=== PATIENT | female | born 1985 | race Caucasian/White ===

== ENCOUNTER 2022-06-06 08:49 | Outpatient (CLI) | payer OTHER, SELFPAY ==
--- NOTE | 2022-06-06 09:15 | US_ITS ---
Patient: DEMOND BRENNAN Facility:?[facility] Patient ID:?[id number] Site Patient ID:?[id number]. Site :?[id number] Study:?US-Pelvis TA/TV-06/06/2022 10:27:26 AM Ordering Physician:?UNKNOWN UNKNOWN Final Report: INDICATION: 36 year-old female. Pelvic cramping. The last menstrual period was 3 weeks ago. TECHNIQUE: Transabdominal and transvaginal pelvic ultrasound. Grayscale and color spectral Doppler waveform analysis of the ovaries was performed. FINDINGS: The uterus measures 6.7 x 2.5 x 3.4 cm. Normal endometrial stripe of 4 mm. Within the upper anterior right uterine fundus there is an intramural/subserosal fibroid measuring 1.3 x 0.7 x 1.0 cm. The right ovary measures 2.9 x 1.5 x 1.4 cm. The left ovary measures 3.5 x 1.6 x 1.8 cm. Blood flow is documented in the ovaries both arterial and venous. No torsion. No ovarian or adnexal mass. No free pelvic fluid. IMPRESSION: Small subserosal fibroid right anterior fundus measuring up to 1.3 cm. Normal ovaries. No torsion or mass. Dictated by Joseph Yuan MD @ 06/06/2022 10:35:10 AM Signed by:?Joseph Yuan MD @06/06/2022 10:35:10 AM (Electronic Signature)
== END 2022-06-06 08:50 | disposition home or self-care (01) ==
PROVIDERS: PCP Emergency Medicine; Visit Provider Physician Assistant
DX: R10.2 Pelvic and perineal pain (principal); D25.2 Subserosal leiomyoma of uterus
CPT/HCPCS: 76830; 76856; 93976

== ENCOUNTER 2022-11-22 08:28 | Outpatient (CLI) | payer OTHER, SELFPAY | END 2022-11-22 08:29 | disposition home or self-care (01) | PROVIDERS: PCP Emergency Medicine; Referring Provider Emergency Medicine; Visit Provider Emergency Medicine | DX: N64.4 Mastodynia (principal); Z13.1 Encounter for screening for diabetes mellitus; Z13.6 Encounter for screening for cardiovascular disorders | CPT/HCPCS: 80061 ==

== ENCOUNTER 2022-11-29 09:12 | Outpatient (CLI) | payer OTHER, SELFPAY ==
--- NOTE | 2022-11-29 09:45 | CRLHL7_ITS ---
For Patients: As a result of the Century Cures Act, medical imaging exams and procedure reports are released immediately into your electronic medical record. You may view this report before your referring provider. If you have questions, please contact your health care provider. DIGITAL DIAGNOSTIC BILATERAL MAMMOGRAM USING TOMOSYNTHESIS AND COMPUTER-AIDED DETECTION INDICATION: 37-year-old female. Intermittent BILATERAL lateral breast pain, LEFT greater than RIGHT, improving over the last two months. No discrete palpable abnormality. No personal or family history of breast cancer. TECHNIQUE: CC and MLO views were obtained. This digital study was evaluated with the assistance of computer-aided detection. Digital breast tomosynthesis utilized. FINDINGS: Breast Composition: There are areas of scattered fibroglandular density. Benign lymph node mid outer LEFT breast. No underlying mass. No suspicious microcalcifications or regions of architecture distortion. No skin thickening. Ultrasound is not recommended at this time. These findings were discussed with the patient. Any further workup or follow-up should be based on clinical grounds. Annual mammography is recommended beginning at age 40. IMPRESSION: Negative baseline mammogram. BI-RADS Category 1: Negative A lay language report of this examination will be provided to the patient. Dictated by: Joseph Yuan MD @11/29/2022 10:22:30 AM jj/Dictated by: Joseph Yuan MD @ 11/29/2022 10:22:00 AM (Electronically Signed)
== END 2022-11-29 09:13 | disposition home or self-care (01) ==
LOC: MAMMO 09:12
PROVIDERS: PCP Emergency Medicine; Visit Provider Emergency Medicine
DX: N64.4 Mastodynia (principal)
CPT/HCPCS: 77066; G0279

== ENCOUNTER 2024-07-22 08:19 | Outpatient (CLI) | payer BC, SELFPAY | END 2024-07-22 08:20 | disposition home or self-care (01) | PROVIDERS: PCP Emergency Medicine; Visit Provider Emergency Medicine | DX: R10.9 Unspecified abdominal pain (principal); Z13.1 Encounter for screening for diabetes mellitus; Z13.6 Encounter for screening for cardiovascular disorders | CPT/HCPCS: 80053; 83690; 87086 ==

== ENCOUNTER 2024-07-23 08:49 | Day surgery (SDC) | payer BC, SELFPAY ==
[2024-07-23] VITALS (10 sets, daily range): BP systolic 121–133; BP diastolic 76–88; PULSE 55–87; RESP 16–18; TEMP 36.4–36.9; O2SAT 95–100; BMI 37.4
--- OUTSIDE RECORDS SUMMARY | 2024-07-23 08:52 | XMS_ITS | Clinical Summary ---
Author Organization [facility] Address [address] [place] [address] Care Team Providers Care Tankman Name Role Phone No Ref-Primary, Physician Primary Care Provider Allergies Active Allergy Reactions Criticality Noted Date Comments Amoxicillin 12/05/2022 Penicillin G 12/05/2022 Medications albuterol (PROAIR HFA/PROVENTIL HFA/VENTOLIN HFA) 108 (90 Base) MCG/ACT inhaler Inhale 2 puffs into the lungs every 6 hours as needed for shortness of breath, wheezing or cough Active drospirenone-et hinyl estradiol (MELITA) 3-0.02 MG tablet Take 1 tablet by mouth daily Active Hospital, Clinic, or Other Facility Administered Medication Ordered Dose Route Frequency Start Date End Date Status sodium chloride (PF) 0.9% PF flush 3 mLIndications:Lower abdominal pain 3 mL IV EVERY 1 MIN PRN 12/05/2022 Activ e Social History Tobacco Use Types Packs/Day Years Used Date Smoking Tobacco: Never Assessed Adolescent Education Answer Date Record ed Getting School Help Needed Not on file 02/03 Comments Unknown Sex and Gender Information Value Date Recorded Sex Assigned at Not on file Legal Sex Female 10:51 AM CDT Gender Identity Not on file Sexual Orientation Not on file Last Filed Vital Signs Vital Sign Reading Time Taken Comments Blood Pressure 133/93 12/05/2022 1:56 PM CDT Pulse 116 12/05/2022 1:56 PM CDT Temperature 37.8 C (100 F) 12/05/2022 12:40 PM CDT Respiratory Rate - - Oxygen Saturation 100% 12/05/2022 1:56 PM CDT Inhaled Oxygen Concentration - - Weight 94.8 kg (209 lb) 12/05/2022 12:00 PM CDT Height - - Body Mass Index - - Plan of Treatment Health Maintenance Due Date Last Done Comments ADVANCE CARE PLANNING 1985 ANNUAL REVIEW OF HM ORDERS 1985 YEARLY PREVENTIVE VISIT 07/15/1990 HIV SCREENING 07/15/2002 HEPATITIS C SCREENING 07/15/2005 HEPATITIS B IMMUNIZATION (1 of 3 - 19+ 3-dose series) 07/15/2006 PAP 07/15/2008 DTAP/TDAP/TD IMMUNIZATION (1 - Tdap) 07/15/2012 COVID-19 Vaccine (1 - 2023-2 5 season) 2024 INFLUENZA VACCINE (#1) 2024 PHQ-2 (once per calendar year) 2024 GLUCOSE 12/05/2025 12/05/2022 ZOSTER IMMUNIZATION (1 of 2) 07/15/2037 HPV IMMUNIZATION Aged Out No longer e ligible based on patient's age to complete this topic MENINGITIS IMMUNIZATION Aged Out No l onger eligible based on patient's age to complete this topic Pneumococcal Vaccine: Pediat rics (0 to 5 Years) and At-Risk Patients (6 to 49 Years) Aged Out No longer eligi ble based on patient's age to complete this topic Procedures Procedure Name Priority Date/Time Associated Diagnosis Comments COMPREHENSIVE METABOLIC PANEL STAT 12/05/2022 12:53 PM CDT Lower abdominal pain from Last 3 Months or Most Recently Relevant to Health Maintenance Results * (ABNORMAL) Comprehensive metabolic panel (12/05/2022 12:53 PM CDT) Sodium 138 136 - 145 mmol/L 12/05/2022 1:45 PM CDT LABORATORY Potassium 3.8 3.4 - 5.3 mmol/L 12/05/2022 1:45 PM CDT LABORATORY Chloride 101 98 - 107 mmol/L 12/05/2022 1:45 PM CDT LABORATORY Carbon Dioxide (CO2) 22 22 - 29 mmol/L 12/05/2022 1:45 PM CDT LABORATORY Anion Gap 15 7 - 15 mmol/L 12/05/2022 1:45 PM CDT LABORATORY Urea Nitrogen 7.7 6.0 - 20.0 mg/dL 12/05/2022 1:45 PM CDT LABORATORY Creatinine 0.78 0.51 - 0.95 mg/dL 12/05/2022 1:45 PM CDT LABORATORY Calcium 9.5 8.6 - 10.0 mg/dL 12/05/2022 1:45 PM CDT LABORATORY Glucose 105(H) 70 - 99 mg/dL 12/05/2022 1:45 PM CDT LABORATORY Alkaline Phosphatase 113(H) 35 - 104 U/L 12/05/2022 1:45 PM CDT LABORATORY AST 17 0 - 45 U/L 12/05/2022 1:45 PM CDT LABORATORY Comment:Reference intervals for this test were updated on 10/23/2022 to more accurately reflect our healthy population. There may be differences in the flagging of prior results with similar values performed with this method. Interpretation of those prior results can be made in the context of the updated reference intervals. ALT 18 0 - 50 U/L 12/05/2022 1:45 PM CDT LABORATORY Comment:Reference intervals for this test were updated on 10/23/2022 to more accurately reflect our healthy population. There may be differences in the flagging of prior results with similar values performed with this method. Interpretation of those prior results can be made in the context of the updated reference intervals. Protein Total 7.3 6.4 - 8.3 g/dL 12/05/2022 1:45 PM CDT LABORATORY Albumin 4.3 3.5 - 5.2 g/dL 12/05/2022 1:45 PM CDT LABORATORY Bilirubin Total 0.7 <=1.2 mg/dL 12/05/2022 1:45 PM CDT LABORATORY GFR Estimate >90 >60 mL/min/1. 73m2 12/05/2022 1:45 PM CDT LABORATORY Blood BLOOD SPECIMEN / Unknown Venipuncture / Unknown 12/05/2022 12:53 PM CDT 12/05/2022 12:54 PM CDT Marcos Florence MD LAB - BLOOD ORDERABLES F inal Result LABORATORY [facility] [address], [address] [place] [address], [facility] [phone] from Last 3 Months or Most Recently Relevant to Health Maintenance Insurance [address] [place], [place] [address] Care Teams Tankman Relationship Specialty Start Date End Date No Ref-Primary, Physician PCP - General 12/05/22
--- NOTE | 2024-07-23 10:06 | CRLHL7_ITS ---
For Patients: As a result of the Century Cures Act, medical imaging exams and procedure reports are released immediately into your electronic medical record. You may view this report before your referring provider. If you have questions, please contact your health care provider. Indication: Right upper quadrant pain Technique: Sonography of the abdomen was performed limited to the structures discussed below. Comparison: September 06, 2021 Findings: The gallbladder wall is normal at 3 millimeters. Mobile stones and debris are noted within the gallbladder. No pericholecystic fluid. No reported sonographic Ferrari`s sign. The common duct measures 4 millimeters which is normal. The liver is normal in size without focal mass. No intrahepatic biliary ductal dilation. Mildly heterogeneous echotexture, a nonspecific finding. The visualized portion of the pancreas appear normal. Portions are obscured by bowel gas. The right kidney is unremarkable in size and appearance. The right kidney measures 11.1 centimeters in length. The proximal aorta and mid aorta as visualized appear normal Main portal vein is patent with appropriate direction of flow Impression: 1. Cholelithiasis but no ultrasound evidence of acute cholecystitis or common duct obstruction. 2. Mildly heterogeneous hepatic echotexture. No focal mass or intrahepatic biliary ductal dilation. 3. Right kidney and visualized portion of the pancreas appear normal Dictated by Juma Johnson MD @ 07/23/2024 11:04:44 AM (Electronically Signed)
--- NOTE | 2024-07-23 10:09 | ED_ITS ---
HPI - General Adult General Chief complaint: Abdominal Pain Stated complaint: Back/abdominal pain Time Seen by Provider: 07/23/24 09:51 History of Present Illness HPI narrative: Patient is a 39 year white female who describes intermittent right upper quadrant abdominal pain. It has been epigastric at times as well. Radiates through to her back. This started last night without an inciting event, and has progressed and persisted through today. She presents to ER for further evaluat ion. She has had this spells intermittently the past but this is the worst. She is on control pills, albuterol as needed, and the allergy medicine. She denies . She has had no rigors or chills. She has had no shortness of breath or chest pain. No change in color of her stool or urine. Related Data Home Medications ?Medication ?Instructions ?Recorded ?Confirmed cetirizine 10 mg capsule (Zyrtec) 10 mg PO QDAY PRN 02/19/24 07/22/24 Previous Rx's ?Medication ?Instructions ?Recorded albuterol sulfate 90 mcg/actuation 2 puff inhalation Q4H PRN 02/19/24 aerosol inhaler shortness of breath or wheezing #8.5 grams cyclobenzaprine 10 mg tablet 5 - 10 mg (0.5 - 1 x 10 mg) PO TID 02/19/24 PRN muscle spasm #15 tabs drospirenone 3 mg-ethinyl 1 tab PO DAILY #84 tabs 02/19/24 estradiol 0.02 mg tablet (Vestura (28)) Allergies Allergy/AdvReac Type Severity Reaction Status Date / Time amoxicillin Allergy Mild Hives Verified 07/23/24 08:55 Penicillins Allergy Mild Hives Verified 07/23/24 08:55 Review of Systems Status of ROS: Reports: 6 or more systems reviewed and unremarkable except as noted in History and below [facility] Medical History Abdominal pain ?R10.9 - Unspecified abdominal pain (ICD-10) Thoracic back pain ?M54.6 - Pain in thoracic spine (ICD-10) Breast pain ?N64.4 - Mastodynia (ICD-10) Screening for diabetes mellitus ?Z13.1 - Encounter for screening for diabetes mellitus (ICD-10) Screening for hyperlipidemia ?Z13.220 - Encounter for screening for lipoid disorders (ICD-10) Polycystic ovary syndrome ?E28.2 - Polycystic ovarian syndrome (ICD-10) Mild intermittent asthma ?J45.20 - Mild intermittent asthma, uncomplicated (ICD-10) Migraine headache ?G43.909 - Migraine, unspecified, not intractable, without status migrainosus (ICD-10) Allergic rhinitis ?J30.9 - Allergic rhinitis, unspecified (ICD-10) Surgical History History of wisdom tooth extraction ?K08.409 - Partial loss of teeth, unspecified cause, unspecified class (ICD- 10) Family History Mother Lung cancer Father COPD (chronic obstructive pulmonary disease) Social History 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 . Nonsmoker. 1-3 drinks per week. No recreational drug use. Feels safe at home and no concerns with abuse. What is your current living situation?: I presently have a place to live Problems where you live: no known problems In the past 12 months, utilities in danger of being shut off: no In past 12 months, lack of transportation kept you from medical appts, meetings, work, or getting things needed for daily living: no In the past 12 mos, have been you worried that your food would run out before you had money to buy more?: never true In the past 12 mos, the food you bought just didn't last and you didn't have money to buy more?: never true Smoking Status: Never smoker How often do you have a drink containing alcohol: 2-3 times a week How many standard drinks containing alcohol do you have on a typical day: 1 or 2 AUDIT-C Alcohol total score: 3 Non-prescribed substance use: denies use How often does anyone, including family, friends and others, physically hurt you : never How often does anyone, including family, friends and others, insult or talk down to you: never How often does anyone, including family, friends and others, threaten you with harm: never How often does anyone, including family, friends and others, scream or curse at you: never Exam Narrative: Exam Narrative: Objective: Vital signs are within normal limits Alert orient x3 Very pleasant HEENT shows no scleral icterus Mouth clear Neck is supple Chest is clear Heart rhythm regular no murmur Abdomen benign soft mild right upper quadrant and epigastric pain to palpation. No rebound. Negative CVA tenderness Extremities are no edema neurologic nonfocal. Good peripheral perfusion noted. Const: Vital Signs, click to edit/add: Vital Signs - 24 hr 07/23/24 08:56 07/23/24 10:06 07/23/24 10:47 Temperature 97.5 F L Pulse Rate 59 L Pulse Rate [Pulse Oximeter] 87 Respiratory Rate 18 Blood Pressure [Le ft Arm] Blood Pressure [Ri ght Upper Arm] 121/84 Pulse Oximetry 95 100 100 Oxygen Delivery Me thod Room Air 07/23/24 11:00 07/23/24 11:15 07/23/24 11:30 Temperature Pulse Rate 55 L 59 L 59 L Pulse Rate [Pulse Oximeter] Respiratory Rate Blood Pressure [Le ft Arm] Blood Pressure [Ri ght Upper Arm] Pulse Oximetry 100 100 99 Oxygen Delivery Me thod 07/23/24 12:33 07/23/24 12:33 07/23/24 12:40 Temperature 98.5 F 98.5 F Pulse Rate Pulse Rate [Pulse Oximeter] 66 66 Respiratory Rate 16 16 16 Blood Pressure [Le ft Arm] 125/82 125/82 Blood Pressure [Ri ght Upper Arm] Pulse Oximetry 98 98 98 Oxygen Delivery Me thod Room Air Room Air Room Air Course Vital Signs Vital signs: Initial Vital Signs Temperature 97.5 F L 07/23/24 08:56 Temperature Source Temporal Artery Scan 07/23/24 08:56 Pulse Rate 87 07/23/24 08:56 Respiratory Rate 18 07/23/24 08:56 Blood Pressure 121/84 07/23/24 08:56 Blood Pressure Mean 96 07/23/24 08:56 Pulse Oximetry 95 07/23/24 08:56 Oxygen Delivery Method Room Air 07/23/24 08:56 Vital Signs Temperature 97.5 F L 07/23/24 08:56 Pulse Rate 87 07/23/24 08:56 Respiratory Rate 18 07/23/24 08:56 Blood Pressure 121/84 07/23/24 08:56 Pulse Oximetry 95 07/23/24 08:56 Oxygen Delivery Method Room Air 07/23/24 08:56 Temperature 98.5 F 07/23/24 12:40 Pulse Rate 66 07/23/24 12:40 Respiratory Rate 16 07/23/24 12:40 Blood Pressure 125/82 07/23/24 12:40 Pulse Oximetry 99 07/23/24 15:00 Oxygen Delivery Method Room Air 07/23/24 12:40 Medications Administered Medications: Generic Name Dose Route Start Last Admin Trade Name Adriane PRN Reason Stop Dose Admin Hydrocodone Bitart/Acetaminophen 1 - 2 tab 07/23/24 12:40 07/23/24 14:17 Hydrocodone-Acetamin 5-325 Mg 1 Tab PO 2 tab Q4H PRN Administration Pain Hydromorphone HCl 0.1 - 0.5 mg 07/23/24 12:40 07/23/24 13:06 Hydromorphone 0.5 Mg/0.5 Ml Inj IVP 0.5 mg Q2H PRN Administration Pain Lactated Ringer's 1,000 mls @ 125 mls/hr 07/23/24 12:40 07/23/24 14:05 Lactated Ringers 1000 Ml IV 125 mls/hr .Q8H YAQUELIN Administration Ondansetron HCl 4 - 8 mg 07/23/24 12:40 07/23/24 13:05 Ondansetron 2 Mg/Ml Inj IVP 4 mg Q8H PRN Administration Nausea And Vomiting Discontinued Medications Generic Name Dose Route Start Last Admin Trade Name Adriane PRN Reason Stop Dose Admin Hydromorphone HCl 0.5 mg 07/23/24 11:15 07/23/24 11:31 Hydromorphone 0.5 Mg/0.5 Ml Inj IVP 07/23/24 11:16 0.5 mg ONCE ONE Administration Sodium Chloride 1,000 mls @ 6,000 mls/hr 07/23/24 10:15 07/23/24 11:29 0.9 % Sodium Chloride 1000 Ml IV 07/23/24 10:24 Infused .Q10M YAQUELIN Infusion Cefepime HCl 1 gm/ Sodium 100 mls @ 200 mls/hr 07/23/24 11:45 07/23/24 12:25 Chloride IVPB Infused Q8H YAQUELIN Infusion Metronidazole 500 mg in 100 mls @ 100 mls/hr 07/23/24 11:40 07/23/24 14:18 Metronidazole IVPB 07/23/24 12:39 Infused ONCE ONE Infusion Morphine Sulfate 4 mg 07/23/24 10:06 07/23/24 10:18 Morphine 4 Mg/Ml Inj IVP 07/23/24 10:07 4 mg ONCE ONE Administration Pantoprazole Sodium 40 mg 07/23/24 10:07 07/23/24 10:19 Pantoprazole Sodium 40 Mg Inj IVP 07/23/24 10:08 40 mg ONCE ONE Administration Medical Decision Making MDM Narrative Medical decision making narrative: 39-year-old white female with right upper quadrant pain persisting, rule out peptic ulcer disease, rule out biliary colic. Patient lab studies, IV fluid, IV pain medicine, by a right upper quadrant ultrasound. Disposition pending findings above. Lab Data Labs: Lab Results 07/23/24 07/23/24 Range/Units 10:30 10:30 WBC 14.01 H (4.50-11.00) K/uL RBC 5.01 (4.00-5.20) m/uL Hgb 15.3 (12.0-16.0) gm/dL Hct 43.7 (33.0-51.0) % MCV 87 (80-100) fL MCH 31 (26-34) pg MCHC 35 (32-36) gm/dL RDW Coeff of Rossana 11.2 L (11.5-15.5) % Plt Count 324 (140-440) K/uL Neut % (Auto) 81.4 H (42.0-72.0) % Lymph % (Auto) 10.9 L (20-44) % [place] % (Auto) 7.2 (0.0-11.0) % Eos % (Auto) 0.2 (0.0-7.0) % Baso % (Auto) 0.2 (0.0-3.0) % Neut # (Auto) 11.40 H (1.7-7.0) K/uL Lymph # (Auto) 1.50 (0.90-2.90) K/uL [place] # (Auto) 1.00 H (0.00-0.90) K/UL Eos # (Auto) 0.00 (0.00-0.50) K/uL Baso # (Auto) 0.00 (0.00-0.30) K/uL Abs Immat Gran (auto) 0.00 (0.00-0.30) K/uL Imm/Tot Granulo (auto) 0.1 % Sodium 137 (135-149) mmol/L Potassium 3.6 (3.6-5.1) mmol/L Chloride 103 (96-114) mmol/L Carbon Dioxide 21 (20-32) mmol/L Anion Gap 13 (7-15) mEq/L BUN 5 (5-24) mg/dL Creatinine 0.6 (0.5-1.5) mg/dL Estimated Creat Clear 110.86 Estimated GFR 118 ml/min Glucose 121 H (60-115) mg/dL Lactate 1.1 (0.5-1.9) mmol/L Calcium 9.3 (8.4-10.6) mg/dL Total Bilirubin 0.7 (0.1-1.5) mg/dL Direct Bilirubin 0.3 (0.0-0.5) mg/dL AST 21 (12-35) U/L ALT 25 (4-35) U/L Alkaline Phosphatase 106 (40-150) U/L C-Reactive Protein 3.0 H (0.5-1.0) mg/dL Total Protein 7.7 (6.0-8.3) g/dL Albumin 4.6 (3.3-5.0) g/dL Amylase Cancelled 93 H HCG, Qual Negative (Negative) Discharge Plan Discharge Clinical Impression: Abdominal pain, Cholelithiasis Patient Disposition: Admitted As Observation
[2024-07-23] MEDS: 0.9 % SODIUM CHLORIDE 1000 ml 1,000 ML 6000 ML IV (10:18)
[2024-07-23] MEDS: MORPHINE 4 MG/ML INJ IVP (10:18)
[2024-07-23] MEDS: PANTOPRAZOLE SODIUM 40 MG INJ IVP (10:19)
[2024-07-23 10:42] LABS: Lactate* 1.1 mmol/L (0.5-1.9)
--- OUTSIDE RECORDS SUMMARY | 2024-07-23 10:45 | XMS_ITS | Clinical Summary ---
Author Organization [facility] Address [address] [place] [address] Care Team Providers Care Driver Supervisor Name Role Phone No Ref-Primary, Physician Primary [...] - BLOOD ORDERABLES F inal Result LABORATORY [facility] [address], [address] [place] [address], [facility] [phone] from Last 3 Months or Most Recently Relevant to Health Maintenance Insurance [address] [place], [place] [address] Care Teams Driver Supervisor Relationship Specialty Start Date End Date No Ref-Primary, Physician PCP - General 12/05/22
[2024-07-23 10:48] LABS: Basophils Percent Auto 0.2 % (0.0-3.0); Eosinophils Percent Auto 0.2 % (0.0-7.0); Hematocrit 43.7 % (33.0-51.0); Hemoglobin* 15.3 gm/dL (12.0-16.0); Immature Granulocytes Pct Auto 0.1 %; Lymphocytes Percent Auto 10.9 % (20-44); Mean Corpuscular HGB Conc 35 gm/dL (32-36); Mean Corpuscular Hemoglobin 31 pg (26-34); Mean Corpuscular Volume 87 fL (80-100); Monocytes Percent Auto 7.2 % (0.0-11.0); Neutrophils Percent Auto 81.4 % (42.0-72.0); Platelet Count* 324 K/uL (140-440); RDW Coefficient of Variation % 11.2 % (11.5-15.5); Red Blood Count 5.01 m/uL (4.00-5.20); Slide Review Reflex No; White Blood Count* 14.01 K/uL (4.50-11.00)
[2024-07-23 11:03] LABS: Albumin* 4.6 g/dL (3.3-5.0); Chloride* 103 mmol/L (96-114); Sodium* 137 mmol/L (135-149)
[2024-07-23 11:04] LABS: Potassium* 3.6 mmol/L (3.6-5.1)
[2024-07-23 11:06] LABS: Amylase* 93 U/L (18-89); Blood Urea Nitrogen* 5 mg/dL (5-24); Creatinine* 0.6 mg/dL (0.5-1.5); Est. Creatinine Clearance* 110.86; Estimated Glomerular Filt Rate 118 ml/min; HCG Qualitative Serum* Negative (Negative)
[2024-07-23 11:07] LABS: Alanine Aminotransferase* 25 U/L (4-35); Alkaline Phosphatase* 106 U/L (40-150); Anion Gap 13 mEq/L (7-15); Aspartate Amino Transferase* 21 U/L (12-35); Bilirubin Direct* 0.3 mg/dL (0.0-0.5); Bilirubin Total* 0.7 mg/dL (0.1-1.5); Calcium* 9.3 mg/dL (8.4-10.6); Carbon Dioxide* 21 mmol/L (20-32); Glucose* 121 mg/dL (60-115); Total Protein* 7.7 g/dL (6.0-8.3)
[2024-07-23] MEDS: HYDROmorphone 0.5 mg/0.5 ml inj IVP ×2 (11:31→13:06)
[2024-07-23] MEDS: CEFEPIME HCL 1 GM in 0.9 % SODIUM CHLORIDE Mini-bag 100 ML IVPB (11:55)
[2024-07-23] MEDS: metroNIDAZOLE 500 MG/100 ML PIGGYBACK 100 MG IVPB (12:38)
--- NOTE | 2024-07-23 12:39 | P.GSHP_ITS ---
History of Present Illness History of Present Illness Date Seen: 07/23/24 Chief complaint: Back/abdominal pain Narrative: Aurelia Viera is a 39 year old female who was admitted to the hospital today with right upper quadrant and back pain. This came on abruptly yesterday around 3:30 p.m.. She had eaten she is in crackers for lunch. With this she had right upper quadrant and epigastric pain which radiated to her right back. She also had nausea and vomiting. No changes in her bowels. No fever. She does have some heartburn type symptoms as well. She states that she has had similar symptoms before. Approximately 18 months ago she developed right posterior shoulder pain which would come on sporadically. This would always wake her up at night and last 4-6 hours. In May she had similar symptoms however this was accompanied by abdominal pain and nausea. She had episodes in May and 2 weeks ago it at the beginning of July. With this she had nausea as well as vomiting. The episode in July lasted 24 hours. She saw her primary care provider and was scheduled to get an ultrasound of her gallbladder. This was yesterday. However in the afternoon she developed the discomfort as described and was told to go to the emergency department. There she was found to have an elevated white blood cell count and cholelithiasis without evidence of cholecystitis. She had no evidence of biliary obstruction. Since admission, she has had some ongoing epigastric and right upper quadrant pain however her shoulder pain is markedly improved. [facility] Medical History Abdominal pain ?R10.9 - Unspecified abdominal pain (ICD-10) Thoracic back pain ?M54.6 - Pain in thoracic spine (ICD-10) Breast pain ?N64.4 - Mastodynia (ICD-10) Screening for diabetes mellitus ?Z13.1 - Encounter for screening for diabetes mellitus (ICD-10) Screening for hyperlipidemia ?Z13.220 - Encounter for screening for lipoid disorders (ICD-10) Polycystic ovary syndrome ?E28.2 - Polycystic ovarian syndrome (ICD-10) Mild intermittent asthma ?J45.20 - Mild intermittent asthma, uncomplicated (ICD-10) Migraine headache ?G43.909 - Migraine, unspecified, not intractable, without status migrainosus (ICD-10) Allergic rhinitis ?J30.9 - Allergic rhinitis, unspecified (ICD-10) Surgical History History of wisdom tooth extraction ?K08.409 - Partial loss of teeth, unspecified cause, unspecified class (ICD- 10) Family History Mother Lung cancer Father COPD (chronic obstructive pulmonary disease) Social History 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 . Nonsmoker. 1-3 drinks per week. No recreational drug use. Feels safe at home and no concerns with abuse. What is your current living situation?: I presently have a place to live Problems where you live: no known problems In the past 12 months, utilities in danger of being shut off: no In past 12 months, lack of transportation kept you from medical appts, meetings, work, or getting things needed for daily living: no In the past 12 mos, have been you worried that your food would run out before you had money to buy more?: never true In the past 12 mos, the food you bought just didn't last and you didn't have money to buy more?: never true Smoking Status: Never smoker How often do you have a drink containing alcohol: 2-3 times a week How many standard drinks containing alcohol do you have on a typical day: 1 or 2 AUDIT-C Alcohol total score: 3 Non-prescribed substance use: denies use How often does anyone, including family, friends and others, physically hurt you : never How often does anyone, including family, friends and others, insult or talk down to you: never How often does anyone, including family, friends and others, threaten you with harm: never How often does anyone, including family, friends and others, scream or curse at you: never Meds Home Medications and Allergies Home Medications ?Medication ?Instructions ?Recorded ?Confirmed ?Type cetirizine 10 mg capsule (Zyrtec) 10 mg PO QDAY PRN 02/19/24 07/23/24 History ibuprofen 200 mg tablet 800 mg PO Q8H PRN 07/23/24 07/23/24 History Allergies Allergy/AdvReac Type Severity Reaction Status Date / Time amoxicillin Allergy Mild Hives Verified 07/23/24 08:55 Penicillins Allergy Mild Hives Verified 07/23/24 08:55 Exam Narrative: Exam Narrative: General appearance: Alert, cooperative, and in no distress Eyes: PERRLA, eye lids clear, and sclera white HENT Head: Normocephalic Ears: External ears normal Pulmonary: Clear to auscultation bilaterally Cardiovascular Heart: Regular rate and rhythm Extremities: warm and well perfused Gastrointestinal Abdominal: No scars. Patient is very mildly tender in the right upper quadrant. No guarding or rebound. Musculoskeletal: Extremities: Upper: Both upper extremities have normal joint range of motion and intact strength. Lower: Both lower extremities have normal joint range of motion and intact strength. Skin: Normal skin color, texture, and turgor. Neurologic: No focal deficits Psychiatric: Alert, oriented, cooperative, normal affect. Const: Vital Signs, click to edit/add: Vital Signs - 24 hr 07/23/24 08:56 07/23/24 10:06 07/23/24 10:47 Temperature 97.5 F L Pulse Rate 59 L Pulse Rate [Pulse Oximeter] 87 Respiratory Rate 18 Blood Pressure [Ri ght Upper Arm] 121/84 Pulse Oximetry 95 100 100 Oxygen Delivery Me thod Room Air 07/23/24 11:00 07/23/24 11:15 07/23/24 11:30 Temperature Pulse Rate 55 L 59 L 59 L Pulse Rate [Pulse Oximeter] Respiratory Rate Blood Pressure [Ri ght Upper Arm] Pulse Oximetry 100 100 99 Oxygen Delivery Me thod Results Results Labs: White blood cell count was 14 CRP is elevated at 3 LFTs within normal limits Electrolytes within normal limits Abdominal ultrasound report/results: report reviewed and image reviewed Additional studies: Findings: The gallbladder wall is normal at 3 millimeters. Mobile stones and debris are noted within the gallbladder. No pericholecystic fluid. No reported sonographic Ferrari`s sign. The common duct measures 4 millimeters which is normal. The liver is normal in size without focal mass. No intrahepatic biliary ductal dilation. Mildly heterogeneous echotexture, a nonspecific finding. The visualized portion of the pancreas appear normal. Portions are obscured by bowel gas. The right kidney is unremarkable in size and appearance. The right kidney measures 11.1 centimeters in length. The proximal aorta and mid aorta as visualized appear normal Main portal vein is patent with appropriate direction of flow Impression: 1. Cholelithiasis but no ultrasound evidence of acute cholecystitis or common duct obstruction. 2. Mildly heterogeneous hepatic echotexture. No focal mass or intrahepatic biliary ductal dilation. 3. Right kidney and visualized portion of the pancreas appear normal Dictated by Juma Johnson MD @ 07/23/2024 11:04:44 AM Progress Note:A&P Assessment and plan (1) Cholelithiasis: Status: Acute (2) Cholecystitis: Status: Acute Plan The patient is a 39-year-old female with likely early cholecystitis. I explained that the treatment for this is laparoscopic cholecystectomy. We discussed gallbladder anatomy and physiology. We discussed the procedure as well as risks and benefits of surgery which include bleeding, infection, bile leak, conversion to open or injury to other structures, specifically the common bile duct. We also discussed recovery. We will plan on surgery tomorrow. Until then she is on antibiotics for her elevated white blood cell count and persistent pain. She is NPO. She is agreeable to proceed.
[2024-07-23] MEDS: ONDANSETRON 2 MG/ML inj IVP ×2 (13:05→18:51)
[2024-07-23] MEDS: LACTATED RINGERS 1000 ML 1,000 ML 125 ML IV ×2 (14:05→22:18)
[2024-07-23] MEDS: HYDROCODONE-ACETAMIN 5-325 MG 1 TAB PO (14:17)
--- NOTE | 2024-07-23 20:15 | PC.NURSE ---
Pt arrived to the floor at 12:33. Pleasant, alert, oriented and vitally stable. Upon arrival pt had pain rated 6-7/10 with nausea, prn dilaudid and zofran given. Pt stated some improvement for about an hour then had pain rated 5-6/10, prn norco given, pt stated improvement. Pt up with SBA, tolerates well. Pt in bed, appears to be resting, call light within reach.
[2024-07-23] MEDS: ERTAPENEM 1 GM in 0.9 % SODIUM CHLORIDE Mini-bag 100 ML IVPB (20:34)
[2024-07-24] VITALS (19 sets, daily range): BP systolic 112–142; BP diastolic 71–86; PULSE 62–92; RESP 14–18; TEMP 36.2–37.2; O2SAT 93–97
[2024-07-24] MEDS: HYDROCODONE-ACETAMIN 5-325 MG 1 TAB PO ×2 (00:01→17:11)
[2024-07-24] MEDS: LACTATED RINGERS 1000 ML 1,000 ML 125 ML IV ×3 (05:55→16:28)
--- NOTE | 2024-07-24 06:39 | PC.NURSE ---
End of shift summary: Pt has been A&O, afebrile and VSS overnight. She ambulates independently with a steady gait. Reported abd pain at 4/10 which was adequately relieved by PRN [place] x1 dose @ 0000. Provided pt with an Aqua K pad which significantly helped her pain as well. PIV in left AC infusing LR @ 125 mL/hr. Pt has been NPO since [place] for planned lap nancy today @ [address] Hudson. She's on IV Ertapenem q24. Denied N/V or dizziness overnight.
[2024-07-24 06:49] LABS: Basophils Absolute Auto 0.03 K/uL (0.00-0.30); Basophils Percent Auto 0.4 % (0.0-3.0); Eosinophils Absolute Auto 0.19 K/uL (0.00-0.50); Eosinophils Percent Auto 2.3 % (0.0-7.0); Hematocrit 38.5 % (33.0-51.0); Hemoglobin* 13.1 gm/dL (12.0-16.0); Immature Granulocytes Abs Auto 0.01 K/uL (0.00-0.30); Immature Granulocytes Pct Auto 0.1 %; Lymphocytes Absolute Auto 2.81 K/uL (0.90-2.90); Lymphocytes Percent Auto 33.3 % (20-44); Mean Corpuscular HGB Conc 34 gm/dL (32-36); Mean Corpuscular Hemoglobin 31 pg (26-34); Mean Corpuscular Volume 90 fL (80-100); Neutrophils Absolute Auto 4.56 K/uL (1.7-7.0); Neutrophils Percent Auto 53.9 % (42.0-72.0); Platelet Count* 257 K/uL (140-440); RDW Coefficient of Variation % 11.6 % (11.5-15.5); White Blood Count* 8.44 K/uL (4.50-11.00)
[2024-07-24 07:00] LABS: Slide Review Reflex No
[2024-07-24 07:02] LABS: Albumin* 3.7 g/dL (3.3-5.0); Chloride* 102 mmol/L (96-114); Sodium* 136 mmol/L (135-149)
[2024-07-24 07:03] LABS: Potassium* 3.5 mmol/L (3.6-5.1)
[2024-07-24 07:04] LABS: Blood Urea Nitrogen* 5 mg/dL (5-24); Creatinine* 0.6 mg/dL (0.5-1.5); Est. Creatinine Clearance* 110.86; Estimated Glomerular Filt Rate 118 ml/min
[2024-07-24 07:05] LABS: Alanine Aminotransferase* 19 U/L (4-35); Alkaline Phosphatase* 75 U/L (40-150); Anion Gap 9 mEq/L (7-15); Aspartate Amino Transferase* 18 U/L (12-35); Bilirubin Direct* 0.3 mg/dL (0.0-0.5); Bilirubin Total* 0.7 mg/dL (0.1-1.5); Calcium* 8.4 mg/dL (8.4-10.6); Carbon Dioxide* 25 mmol/L (20-32); Glucose* 84 mg/dL (60-115); Total Protein* 6.1 g/dL (6.0-8.3)
--- NOTE | 2024-07-24 09:46 | PM.GSPN ---
Subjective Subjective Date Seen: 07/24/24 Interval history: Aurelia did well overnight. Pain is controlled. No fevers. No concerns. Exam Narrative: Exam Narrative: General: No acute distress Respiratory: Breathing nonlabored on room air CV: Regular rate Const: Vital Signs, click to edit/add: Vital Signs - 24 hr 07/23/24 10:06 07/23/24 10:47 07/23/24 11:00 Temperature Pulse Rate 59 L 55 L Pulse Rate [Pulse Oximeter] Respiratory Rate Blood Pressure [Le ft Arm] Blood Pressure [Ri ght Arm] Pulse Oximetry 100 100 100 Oxygen Delivery Me thod 07/23/24 11:15 07/23/24 11:30 07/23/24 12:33 Temperature 98.5 F Pulse Rate 59 L 59 L Pulse Rate [Pulse Oximeter] 66 Respiratory Rate 16 Blood Pressure [Le ft Arm] 125/82 Blood Pressure [Ri ght Arm] Pulse Oximetry 100 99 98 Oxygen Delivery Me thod Room Air 07/23/24 12:33 07/23/24 12:40 07/23/24 15:00 Temperature 98.5 F Pulse Rate Pulse Rate [Pulse Oximeter] 66 Respiratory Rate 16 16 Blood Pressure [Le ft Arm] 125/82 Blood Pressure [Ri ght Arm] Pulse Oximetry 98 98 99 Oxygen Delivery Me thod Room Air Room Air 07/23/24 15:00 07/23/24 15:00 07/23/24 20:44 Temperature 97.8 F 98.4 F Pulse Rate Pulse Rate [Pulse Oximeter] 69 69 76 Respiratory Rate 16 16 16 Blood Pressure [Le ft Arm] 122/76 Blood Pressure [Ri ght Arm] 133/88 Pulse Oximetry 97 97 Oxygen Delivery Me thod Room Air 07/24/24 00:00 07/24/24 00:00 07/24/24 04:00 Temperature 97.6 F 98 F Pulse Rate Pulse Rate [Pulse Oximeter] 82 76 Respiratory Rate 18 16 Blood Pressure [Le ft Arm] Blood Pressure [Ri ght Arm] 121/86 112/74 Pulse Oximetry 97 97 95 Oxygen Delivery Me thod Room Air Room Air Room Air 07/24/24 07:00 07/24/24 07:30 07/24/24 07:30 Temperature 98.1 F Pulse Rate Pulse Rate [Pulse Oximeter] 92 92 Respiratory Rate 18 18 18 Blood Pressure [Le ft Arm] Blood Pressure [Ri ght Arm] 118/80 Pulse Oximetry 96 96 Oxygen Delivery Me thod Room Air Room Air Labs/Imaging Labs Labs: White blood cell count and LFTs within normal limits. Mildly decreased potassium at 3.5. Progress Note:A&P Assessment and plan (1) Cholecystitis: Status: Acute (2) Cholelithiasis: Status: Acute Plan The patient is a 39-year-old female with likely early cholecystitis. We are planning on cholecystectomy today. She has no questions or concerns. Pending surgical timing, we will plan on possible discharge later today.
[2024-07-24] MEDS: HYDROmorphone 0.5 mg/0.5 ml inj IVP ×3 (10:41→19:54)
[2024-07-24] MEDS: ERTAPENEM 1 GM in 0.9 % SODIUM CHLORIDE Mini-bag 100 ML IVPB (13:39)
--- NOTE | 2024-07-24 14:05 | P.ANES_ITS ---
Anesthesia Charges Start Date/Time Anesthesia Start Date: 07/24/24 Anesthesia Start Time: 13:35 Stop Date/Time Anesthesia Stop Date: 07/24/24 Anesthesia Stop Time: 15:43 Coding CPT Codes CPT Codes: ANESTH SURG UPPER ABDOMEN - 23815 ([id number]) P2 - PATIENT W/MILD SYST DISEASE, QK - MOTORSPORTS TECHNICIAN 2-4 CNCRNT ANES PROC, QX - DIETARY AIDE SVC W/ MD MED DIRECTION
--- NOTE | 2024-07-24 14:05 | W.ANESCHARGE ---
Anesthesia Charges Start Date/Time Anesthesia Start Date: 07/24/24 Anesthesia Start Time: 13:35 Stop Date/Time Anesthesia Stop Date: 07/24/24 Anesthesia Stop Time: 15:43 Coding CPT Codes CPT Codes: ANESTH SURG UPPER ABDOMEN - 95980 ([id number]) P2 - PATIENT W/MILD SYST DISEASE, QK - ROLLER LEVELER OPERATOR 2-4 CNCRNT ANES PROC, QX - WOOD HEEL FLAP RUBBER SVC W/ MD MED DIRECTION
[2024-07-24] MEDS: BUPIVACAINE 0.25% 30 ML INJECTION (15:31)
--- NOTE | 2024-07-24 15:32 | PC.NURSE ---
End of shift note: Patient denied N/V. Pain was rated from 0-3 and pain meds iv were offered and given, with improvement. Pt ambulates ind. Aquapad utilized with reduced pain. LR running at 125 mls/hr. Left unit at 1340 for surgery. Voided before surgery. Went to surgery with ring on left hand.
--- NOTE | 2024-07-24 15:45 | P.ANES_ITS ---
Anesthesia Charges Start Date/Time Anesthesia Start Date: 07/24/24 Anesthesia Start Time: 13:35 Stop Date/Time Anesthesia Stop Date: 07/24/24 Anesthesia Stop Time: 15:43 Coding CPT Codes CPT Codes: ANESTH SURG UPPER ABDOMEN - 23662 ([id number]) P2 - PATIENT W/MILD SYST DISEASE, QK - STUDENT RECORDS COORDINATOR 2-4 CNCRNT ANES PROC, QX - OBSTETRICS TECH SVC W/ MD MED DIRECTION
--- NOTE | 2024-07-24 15:45 | W.ANESCHARGE ---
Anesthesia Charges Start Date/Time Anesthesia Start Date: 07/24/24 Anesthesia Start Time: 13:35 Stop Date/Time Anesthesia Stop Date: 07/24/24 Anesthesia Stop Time: 15:43 Coding CPT Codes CPT Codes: ANESTH SURG UPPER ABDOMEN - 63031 ([id number]) P2 - PATIENT W/MILD SYST DISEASE, QK - PROJ MGR 2-4 CNCRNT ANES PROC, QX - CONDUCTOR SLEEPING CAR SVC W/ MD MED DIRECTION
[2024-07-24] MEDS: fentaNYL 100 MCG/2 ML inj 50 MCG IVP ×2 (15:48→15:58)
--- NOTE | 2024-07-24 15:49 | P.GSOP_ITS ---
Operative Note Date of procedure: 07/24/24 Pre-op diagnosis: Acute cholecystitis Post-op diagnosis: Same Type of Procedure: Laparoscopic cholecystectomy Indications: The patient is a 39-year-old female who presented to the emergency department with severe epigastric and right upper quadrant pain. She was found to have gallstones and an elevated white blood cell count concerning for acute cholecystitis. She was admitted to the hospital and placed on antibiotics. Plans were made for cholecystectomy. She agreed to proceed after discussion of risks and benefits. Procedure Description: After discussing the risks and benefits of the procedure, the patient signed informed consent.? The operative site was marked and the patient was brought to the operating room and placed on the operating table in supine position.? Care was taken to pad the patient's pressure points.?? The patient was then intubated by anesthesia.?? The operative site was then prepped and draped in the usual sterile fashion.? A time-out was then performed. Entrance to the abdomen was gained via a 5 mm Visiport in the left upper quadrant. The abdomen was insufflated and briefly surveyed for signs of injury. There was none. A 10 mm umbilical port was placed as well as 2 working ports along the right costal margin, all under direct vision. The patient was then placed in reverse Trendelenburg position with the right side up. The gallbladder was noted to be distended and inflamed. A needle was used to aspirate bile from the gallbladder. The bile was not purulent or clear. The fundus was grasped and retracted cephalad. The infundibulum was grasped. A combination of hook cautery and blunt dissection was used to carefully dissect out the cystic duct and artery. The tissue was extremely inflamed. It bled easily. Small bleeding vessels leading into the gallbladder were clipped for hemostasis during this dissection. Cystic artery was identified and clipped with 2 clips proximal and 1 clip distal, close to the gallbladder to ensure no injury to other structures. Once this was done I was able to dissect out the cystic duct circumferentially. I then took the gallbladder off the cystic plate, ensuring no other intervening structures. The cystic duct was then clipped with 2 clips distally and 1 clip proximal and divided with scissor. The gallbladder was then removed from the liver bed using cautery. Again the gallbladder was markedly inflamed. Small vessels leading into the gallbladder bled easily. Some of these vessels were clipped for hemostasis. Once the gallbladder was dissected from the liver, it was removed from the abdomen using an Endo-Catch bag. Some stones which had spilled were also placed in the bag and removed. There was a bleeding vessel noted in the anterior aspect of the gallbladder fossa. A clip was placed which help with hemostasis. Surgicel was placed over the area and the abdomen was irrigated. Any small stones which had spilled were then carefully removed until no further stones were seen. The Surgicel was moved away from the area that was bleeding and there was no ongoing bleeding noted. I did cauterize the area on the liver bed and then waited 10 minutes to ensure there was no ongoing bleeding, while continuing to irrigate the upper abdomen. There was no ongoing bleeding noted from the liver bed. Surgicel was then placed in the gallbladder fossa. The ports were then removed and the abdomen was desufflated. The umbilical port fascia was closed with 0 Vicryl. The skin was closed with absorbable subcuticular suture. Sterile dressings were applied. Instrument sponge and needle counts were correct at the end of the case. The pa tient was then woken and transferred to the PACU in stable condition. ? The patient tolerated the procedure well. Findings: Acute cholecystitis with significant gallbladder inflammation and edema Anesthesia: GETYudelka Surgeon: Sophia Hudson MD Estimated blood loss (mL): 25 Specimen: Gallbladder Condition: stable Disposition: PACU
--- NOTE | 2024-07-24 19:03 | PC.NURSE ---
Addendum entered by Lynda Nielson RN 07/24/24 19:08: shift was [id number] not [id number] Original Note: Nursing Care Hours: [id number] Pt this shift calm and cooperative, alert and oriented. Post op recovery without incident. Up to void x1. Ate soft food diet. Pain tolerated on PO meds. Walk giron x1. BS absent, lap sites CDI, abdomen soft.
== END 2024-07-24 20:12 | disposition home or self-care (01) ==
LOC: ED 11:58 → SS 13:38 → MEDSURG 07-24 16:06
PROVIDERS: Emergency Provider Family Medicine; PCP Emergency Medicine; Visit Provider Surgery
PROC: 0FT44ZZ Resection of Gallbladder, Percutaneous Endoscopic Approach (ICD-10-PCS; CPT 47562; principal; 2024-07-24 13:30)
DX: K80.00 Calculus of gallbladder with acute cholecystitis without obstruction (principal); J45.20 Mild intermittent asthma, uncomplicated
CPT/HCPCS: 47562; 00790; 36415; 76705; 80048; 80076; 82150; 83605; 84703; 85025; 86140; 88304; 94761; 99285; A9270; J0330; J0665; J0692; J1100; J1171; J1335; J1836; J2250; J2270; J2405; J2470; J2704; J2710; J3010; J7030; J7120

== ENCOUNTER 2025-04-23 09:50 | Outpatient (CLI) | payer BC, SELFPAY | END 2025-04-23 09:51 | disposition home or self-care (01) | LOC: NFLDREF 04-29 04:31 | PROVIDERS: PCP Family Medicine; Visit Provider Family Medicine | DX: Z87.448 Personal history of other diseases of urinary system (principal) | CPT/HCPCS: 87086 ==